=== PATIENT | female | born 1970 | race Caucasian/White ===

== ENCOUNTER → 2018-05-26 | Outpatient (CLI) | payer OTHER | END | disposition home or self-care (01) | LOC: CFH 13:33 | PROVIDERS: ATTEND Family Medicine | DX: N60.01 Solitary cyst of right breast (principal); N60.02 Solitary cyst of left breast; Z80.3 Family history of malignant neoplasm of breast | CPT/HCPCS: 76641; 77066; G0279 ==

== ENCOUNTER 2018-06-27 07:18 | Outpatient (CLI) | payer OTHER ==
[2018-06-27] MEDS ORDERED: GADOBUTROL 7.5 MMOL/7.5 ML PFS ONE (09:12)
== END 2018-06-27 23:59 | disposition home or self-care (01) ==
LOC: CFH 07:18
PROVIDERS: ATTEND Surgery
DX: Z15.01 Genetic susceptibility to malignant neoplasm of breast (principal); Z80.3 Family history of malignant neoplasm of breast
CPT/HCPCS: 77049; A9585